=== PATIENT | female | born 2000 ===

== ENCOUNTER 2021-04-22 10:15 | Outpatient (RCR) | payer OTHER, SELFPAY ==
[2021-04-04 12:59] VITALS: BMI 19.5
--- NOTE | 2021-04-04 14:36 | PC.NURSE ---
Case opened in treatment team.
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
--- NOTE | 2021-04-08 15:00 | PC.NURSE ---
Pt emailed staff that she has a different phone number for us to reach her at: [phone]. I tried to call her at this number twice, and I did leave a message asking for a call back. I then called her old number (in chart) and it rang and rang for a long time with no answer.
--- NOTE | 2021-04-09 14:23 | PC.NURSE ---
After speaking with pt about aftercare options and getting her permission, I called and put in a referral for [facility] (for therapy and med management). I spoke to Kiya. She took information and said a triage nurse will call pt with an appointment for an intake. I gave them pt's new phone number ([phone]). I then called pt and let her know this, and asked to to be expecting this call.
--- NOTE | 2021-04-10 16:56 | P.PNPSP_ITS ---
Subjective Subjective Date of Service: 04/10/21 Reason For Visit: Adjustment Disorder Unspecified Guardianship: No Medical Problems Affecting Mental Status: No Interim History: Client reports that she is ?doing pretty good ?. Denies any thoughts of harm to self or others. Denies any alcohol use. Reports that she has been having cravings to drink at times. Also reports some mood instability, reports that she feels that she gets angry quickly, and continues having mood lability. Medication Compliance: Yes Side effects from medications: No Attending Groups: Yes Review of Systems Acute medical concerns: No Medical Review of Systems: unchanged Review of Systems Review of Systems Yes all other systems are reviewed and are negative Constitutional: Reports no additional constitutional complaints Mental Status Exam Mental Status Exam Narrative: Well-developed, well-nourished female, in NAD. Alert and oriented x4. No involuntary movements noted, motor activity calm. Patient Appearance: Well Grooomed and Appropriate Patient Orientation: Person, Place, Time and Situation Level of Consciousness: Awake, Appropriate and Alert Patient Behavior: Appropriate, Talkative, Cooperative and Good Eye Contact Mood Description: Appropriate, Anxious, Labile and Expansive Affect Description: Appropriate, Cheerful, Labile and Expansive Patient Cognition Impaired: No Ability to Follow Directions: Excellent Speech Pattern: Clear, Appropriate, Spontaneous Speech and Coherent Memory Description: Intact Hallucinations: None Delusions: Not Present Thought Process: Intact and Goal Oriented Thought Content: positive for Intact, positive for Racing and positive for Circumstantial Depressive Symptoms: Increased Anxiety, Difficulty Sleeping (reports varied sleep pattern, either too much or too little), Changes in Appetite, Crying Spells (endorses frequent mood lability. ), Loss of Int. in Activity, Feelings of Worthlessness, Hopelessness, Feelings of Guilt and Difficulty Concentrating Judgement: Fair Diagnostics Vital Signs (24Hr): BMI result Body Mass Index 19.5 Assessment & Plan Assessment & Plan (1) ERICKA (generalized anxiety disorder): Status: Acute Code(s): F41.1 - Generalized anxiety disorder Assessment and Plan: Client reports mood lability, increased anger and aggression at times. Requesting mood stabilizer. Discussed Lamictal as was presented last week. Client has still not obtained test. Lamictal was discussed regarding safety in , as well as risks and benefits. Client reports that she has appointment tomorrow with her primary care office and also to obtain a test. She states that she is willing to take Lamictal, but may wait until after results of her test tomorrow. (2) MDD (major depressive disorder): Status: Acute Code(s): F32.9 - Major depressive disorder, single episode, unspecified Assessment and Plan: Client denies any thought of harm to self or others, no safety concern at this time. Does report mood lability, requesting to have script for Lamictal sent so that she can begin it. (3) ETOH abuse: Status: Acute Code(s): F10.10 - Alcohol abuse, uncomplicated Assessment and Plan: Client reports ongoing abstinence regarding alcohol use. States that she has been having craving at times. Medications discussed such as a camper state and naltrexone, also in Vivitrol form. She is willing to trial oral naltrexone, with possibility of switching to Vivitrol if able to tolerate oral naltrexone 1st. Education provided including need for no use of narcotics within past week or future use while receiving this medication. She stated understanding, and was agreeable to this. She was also willing to accept referral to [facility]. Assessment and Plan: 1. Start Lamictal 25 mg daily times 14 days. Patient has been informed of risks and benefits, especially considering test scheduled for tomorrow. 2. Start naltrexone 50 mg po daily. 3. Follow-up as per protocol. Patient educated on: diagnosis, medication risk/benefits, substance abuse and therapeutic strategies Informed Consent: understands Reason for contiued partial hosp. stay Substantial Risk for: inability to function and med/psych decompensation Certification I certify that partial hospital treatment is medically necessary due to the symptoms and problems resulting from the patient's mental illness and the failure to treat the patient at the partial hospital level of care would likely result in the patient requiring inpatient psychiatric care which could not be prevented at a less intensive level of care. I spent minutes with the patient and/or on the patient floor today, greater than?50% of which was spent counseling/coordinating care. Discharge Plan Discharge Attending provider: Martin Rosales Medications: New lamotrigine 25 mg tablet 25 mg PO DAILY 14 Days Qty: 14 RF: 0 naltrexone 50 mg tablet 50 mg PO DAILY Qty: 7 RF: 0 No Action trazodone 50 mg Tablet 50 mg PO BEDTIME PRN (Reason: Insomnia) RF: 0 nicotine (polacrilex) 2 mg Gum 2 mg BUCCAL Q2H RF: 0 hydroxyzine pamoate 50 mg Capsule 50 mg PO BID PRN (Reason: Anxiety) RF: 0 nicotine 21 mg/24 hr Patch 24 Hour 1 patch TRANSDERMAL DAILY RF: 0 melatonin 10 mg Tablet, Sublingual 10 mg SUBLINGUAL BEDTIME PRN (Reason: Insomnia) RF: 0 Telehealth Telehealth Location of provider rendering services: practice address Location of patient: address on file Patient Identification confirmed using: Name, : Yes Telehealth method: video Patient verbally consented to treatment: Yes Patient verbally consented to billing insurance company: Yes Patient informed of any privacy concerns related to visit: Yes Time spent with patient (mins): 15
--- NOTE | 2021-04-12 13:07 | PC.NURSE ---
Called Rowan ware, awaiting a call back to talk about patient's interest in an appointment at the [facility] regarding Vivitrol.
--- NOTE | 2021-04-16 16:18 | HO.PHPPROGNO ---
Subjective Subjective Date of Service: 04/16/21 Reason For Visit: Adjustment Disorder Unspecified Interim History: Patient seen and discussed with team. Patient evaluated this morning and upon interview she reports If im being completely honest, she has not started taking lamictal or naltrexone. Says she continues to have cravings for alcohol, noticed this was worse over a period of 3 days last week, attributes this to the holidays but says since then she has felt fine. Says sleep is honestly pretty good, utilizes vistaril and melatonin before bed with good effect. Says her energy is a lot better but its hard to wake up in the morning. Denies mood or behavioral concerns, Lakisha been alright. Denies panic attacks. Utilizes supports. Appetite is decent. Says [facility] groups are great to be honest. Medication Compliance: Yes Side effects from medications: No Attending Groups: Yes Review of Systems Acute medical concerns: No Medical Review of Systems: unchanged Mental Status Exam Mental Status Exam Narrative: Well-developed, well-nourished female, in NAD.? Alert and oriented x4.? No involuntary movements noted, motor activity calm. Patient Appearance: Well Grooomed and Appropriate Patient Orientation: Person, Place, Time and Situation Level of Consciousness: Awake, Appropriate and Alert Patient Behavior: Appropriate, Talkative, Cooperative and Good Eye Contact Mood Description: Appropriate, Anxious, Labile and Expansive, alright Affect Description: Appropriate, Cheerful, Labile and Expansive Patient Cognition Impaired: No Ability to Follow Directions: Excellent Speech Pattern: Clear, Appropriate, Spontaneous Speech and Coherent Memory Description: Intact Hallucinations: None Delusions: Not Present Thought Process: Intact and Goal Oriented Thought Content: positive for Intact, positive for Racing and positive for Circumstantial Depressive Symptoms: Increased Anxiety, Difficulty Sleeping (reports varied sleep pattern, either too much or too little), Changes in Appetite, Crying Spells (endorses frequent mood lability. ), Loss of Int. in Activity, Feelings of Worthlessness, Hopelessness, Feelings of Guilt and Difficulty Concentrating Judgment: Fair Diagnostics Vital Signs (24Hr): BMI result Body Mass Index 19.5 Assessment & Plan Assessment & Plan (1) MDD (major depressive disorder): Status: Acute Code(s): F32.9 - Major depressive disorder, single episode, unspecified (2) ERICKA (generalized anxiety disorder): Status: Acute Code(s): F41.1 - Generalized anxiety disorder (3) ETOH abuse: Status: Acute Code(s): F10.10 - Alcohol abuse, uncomplicated Assessment and Plan: Pt completed test and states this was negative. She has not picked up lamictal or naltrexone as of yet but plans to start them tomorrow to target sx of mood instability, depression, and urges for drinking. Says she has been abstinent from alcohol but noticed worsening cravings for 3 days last week and also thoughts to drink after work, however says she utilizes social supports. Also of note, per prev progress note pt is also willing to accept referral to [facility]. 1. Start Lamictal 25 mg daily times 14 days.? Patient has been informed of risks and benefits, especially considering test scheduled for tomorrow. 2. Start naltrexone 50 mg po daily. 3. Follow-up as per protocol. Certification I certify that partial hospital treatment is medically necessary due to the symptoms and problems resulting from the patient's mental illness and the failure to treat the patient at the partial hospital level of care would likely result in the patient requiring inpatient psychiatric care which could not be prevented at a less intensive level of care. I spent minutes with the patient and/or on the patient floor today, greater than?50% of which was spent counseling/coordinating care. Discharge Plan Discharge Attending provider: Martin Rosales Additional Instructions: Intake appointment at [facility] location with INDRA Mejias. on 05/01/2020 at 2pm. PCP at [facility] has agreed to cover medication management per pt while waiting to get in with a med provider. Call program nurse, Amber Reeder RN, to discuss option for vivitrol as discussed. Medications: New lamotrigine 25 mg tablet 25 mg PO DAILY 14 Days Qty: 14 RF: 0 naltrexone 50 mg tablet 50 mg PO DAILY Qty: 7 RF: 0 lamotrigine 25 mg tablet 50 mg PO DAILY 14 Days Qty: 28 RF: 0 lamotrigine [Lamictal] 100 mg tablet 100 mg PO DAILY 30 Days Qty: 30 RF: 0 No Action trazodone 50 mg Tablet 50 mg PO BEDTIME PRN (Reason: Insomnia) RF: 0 nicotine (polacrilex) 2 mg Gum 2 mg BUCCAL Q2H RF: 0 hydroxyzine pamoate 50 mg Capsule 50 mg PO BID PRN (Reason: Anxiety) RF: 0 nicotine 21 mg/24 hr Patch 24 Hour 1 patch TRANSDERMAL DAILY RF: 0 melatonin 10 mg Tablet, Sublingual 10 mg SUBLINGUAL BEDTIME PRN (Reason: Insomnia) RF: 0 Stand Alone Forms: Patient Portal Discharge page
--- NOTE | 2021-04-18 13:52 | HO.PHPPROGNO ---
Subjective Subjective Date of Service: 04/18/21 Reason For Visit: Adjustment Disorder Unspecified Guardianship: No Medical Problems Affecting Mental Status: No Interim History: Rowan reports I'm doing alright, I feel pretty neutral right now . Reports that her mood is okay. States that she continues with some cravings for alcohol, but has been able to abstain. Utilizing 12 step meetings via zoom. Has only been taking Lamictal and naltrexone for past 2 days. Denies any type of side effects. No thoughts of harm to self or others, no safety concern. Medication Compliance: Intermittent Side effects from medications: No Attending Groups: Yes Review of Systems Acute medical concerns: No Medical Review of Systems: unchanged Review of Systems Review of Systems Yes all other systems are reviewed and are negative Constitutional: Reports no additional constitutional complaints Mental Status Exam Mental Status Exam Narrative: Well-developed, well-nourished female, in NAD. Alert and oriented x4. No involuntary movements noted, motor activity calm. Patient Appearance: Well Grooomed and Appropriate Patient Orientation: Person, Place, Time and Situation Level of Consciousness: Awake, Appropriate and Alert Patient Behavior: Appropriate, Talkative, Cooperative and Good Eye Contact Mood Description: Calm (describes mood as neutral .) and Appropriate Affect Description: Appropriate, Depressed and Anxious Patient Cognition Impaired: No Ability to Follow Directions: Excellent Speech Pattern: Clear, Appropriate, Spontaneous Speech and Coherent Memory Description: Intact Hallucinations: None Delusions: Not Present Thought Process: Intact, Goal Oriented and Linear Thought Content: positive for Intact, positive for Goal Oriented, positive for Linear and positive for Logical Depressive Symptoms: Increased Anxiety, Loss of Int. in Activity, Feelings of Worthlessness and Feelings of Guilt Judgement: Fair Diagnostics Vital Signs (24Hr): BMI result Body Mass Index 19.5 Assessment & Plan Assessment & Plan (1) MDD (major depressive disorder): Status: Acute Code(s): F32.9 - Major depressive disorder, single episode, unspecified Assessment and Plan: Rowan reports I'm doing alright, I feel pretty neutral right now . Reports that her mood is okay. States that she continues with some cravings for alcohol, but has been able to abstain. Utilizing 12 step meetings via zoom. Has only been taking Lamictal and naltrexone for past 2 days. Denies any type of side effects. client instructed to stop Lamictal if rash develops, and notify us. No thoughts of harm to self or others, no safety concerns at this time. (2) ERICKA (generalized anxiety disorder): Status: Acute Code(s): F41.1 - Generalized anxiety disorder (3) ETOH abuse: Status: Acute Code(s): F10.10 - Alcohol abuse, uncomplicated Assessment and Plan: 1. Continue with Lamictal 25 mg x 14 days, with plan to titrate up to 50mg X14 days, then 100mg thereafter. 2. Continue with naltrexone, other medications as prescribed. 3. Follow-up as per protocol. Patient educated on: diagnosis, medication risk/benefits, substance abuse and therapeutic strategies Informed Consent: understands Reason for contiued partial hosp. stay Substantial Risk for: inability to function and med/psych decompensation Certification I certify that partial hospital treatment is medically necessary due to the symptoms and problems resulting from the patient's mental illness and the failure to treat the patient at the partial hospital level of care would likely result in the patient requiring inpatient psychiatric care which could not be prevented at a less intensive level of care. I spent minutes with the patient and/or on the patient floor today, greater than?50% of which was spent counseling/coordinating care. Discharge Plan Discharge Attending provider: Martin Rosales Medications: New lamotrigine 25 mg tablet 25 mg PO DAILY 14 Days Qty: 14 RF: 0 naltrexone 50 mg tablet 50 mg PO DAILY Qty: 7 RF: 0 No Action trazodone 50 mg Tablet 50 mg PO BEDTIME PRN (Reason: Insomnia) RF: 0 nicotine (polacrilex) 2 mg Gum 2 mg BUCCAL Q2H RF: 0 hydroxyzine pamoate 50 mg Capsule 50 mg PO BID PRN (Reason: Anxiety) RF: 0 nicotine 21 mg/24 hr Patch 24 Hour 1 patch TRANSDERMAL DAILY RF: 0 melatonin 10 mg Tablet, Sublingual 10 mg SUBLINGUAL BEDTIME PRN (Reason: Insomnia) RF: 0 Telehealth Telehealth Location of provider rendering services: practice address Location of patient: address on file Patient Identification confirmed using: Name, : Yes Telehealth method: video Patient verbally consented to treatment: Yes Patient verbally consented to billing insurance company: Yes Patient informed of any privacy concerns related to visit: Yes Time spent with patient (mins): 15
--- NOTE | 2021-04-18 14:17 | HO.PHPPROGNO ---
Subjective Subjective Date of Service: 04/22/21 Reason For Visit: Adjustment Disorder Unspecified Guardianship: No Medical Problems Affecting Mental Status: No Interim History: Rowan reports I am doing alright . Describes mood as improved, with depressive and anxiety symptoms much more manageable at this time. Denies any type of thoughts of harm to self or others, no safety concern. Reports that she feels stable for discharge from [facility] today. Needs script for lamotrigine titration. Reports that her primary care office has offered to continue her psychiatric medications until she can meet with a psych provider going forward. Medication Compliance: Yes Side effects from medications: No Attending Groups: Yes Review of Systems Acute medical concerns: No Medical Review of Systems: unchanged Review of Systems Review of Systems Yes all other systems are reviewed and are negative Constitutional: Reports no additional constitutional complaints Mental Status Exam Mental Status Exam Narrative: Well-developed, well-nourished female, in NAD. Alert and oriented x4. No involuntary movements noted, motor activity calm. Patient Appearance: Well Grooomed and Appropriate Patient Orientation: Person, Place, Time and Situation Level of Consciousness: Awake, Appropriate and Alert Patient Behavior: Appropriate, Cooperative and Good Eye Contact Mood Description: Calm, Appropriate and Cheerful Affect Description: Calm, Appropriate and Cheerful Patient Cognition Impaired: No Ability to Follow Directions: Excellent Speech Pattern: Clear, Appropriate, Spontaneous Speech and Coherent Memory Description: Intact Hallucinations: None Delusions: Not Present Thought Process: Intact, Goal Oriented and Linear Thought Content: positive for Intact, positive for Goal Oriented, positive for Linear and positive for Logical Judgement: Good Diagnostics Vital Signs (24Hr): BMI result Body Mass Index 19.5 Assessment & Plan Assessment & Plan (1) MDD (major depressive disorder): Status: Acute Code(s): F32.9 - Major depressive disorder, single episode, unspecified Assessment and Plan: Rowan reports I am doing alright . Describes mood as improved, with depressive and anxiety symptoms much more manageable at this time. Denies any type of thoughts of harm to self or others, no safety concern. Reports that she feels stable for discharge from [facility] today. Needs script for lamotrigine titration. Reports that her primary care office has offered to continue her psychiatric medications until she can meet with a psych provider going forward. (2) ERICKA (generalized anxiety disorder): Status: Acute Code(s): F41.1 - Generalized anxiety disorder (3) ETOH abuse: Status: Acute Code(s): F10.10 - Alcohol abuse, uncomplicated Assessment and Plan: Reports doing well with oral naltrexone to manage cravings. Assessment and Plan: 1. After 14 days of lamotrigine 25 mg daily completed, titrate up to 50 mg daily times 14 days. 2. After 14 days of lamotrigine 50 mg daily completed, titrate up to 100 mg daily going forward. 3. Patient appears stable for discharge from [facility]. Will follow up with outpatient providers going forward. Patient educated on: diagnosis, medication risk/benefits, substance abuse and therapeutic strategies Informed Consent: understands Reason for contiued partial hosp. stay Substantial Risk for: stable for discharge Certification I certify that partial hospital treatment is medically necessary due to the symptoms and problems resulting from the patient's mental illness and the failure to treat the patient at the partial hospital level of care would likely result in the patient requiring inpatient psychiatric care which could not be prevented at a less intensive level of care. I spent minutes with the patient and/or on the patient floor today, greater than?50% of which was spent counseling/coordinating care. Discharge Plan Discharge Attending provider: Martin Rosales Medications: New lamotrigine 25 mg tablet 25 mg PO DAILY 14 Days Qty: 14 RF: 0 naltrexone 50 mg tablet 50 mg PO DAILY Qty: 7 RF: 0 lamotrigine 25 mg tablet 50 mg PO DAILY 14 Days Qty: 28 RF: 0 lamotrigine [Lamictal] 100 mg tablet 100 mg PO DAILY 30 Days Qty: 30 RF: 0 No Action trazodone 50 mg Tablet 50 mg PO BEDTIME PRN (Reason: Insomnia) RF: 0 nicotine (polacrilex) 2 mg Gum 2 mg BUCCAL Q2H RF: 0 hydroxyzine pamoate 50 mg Capsule 50 mg PO BID PRN (Reason: Anxiety) RF: 0 nicotine 21 mg/24 hr Patch 24 Hour 1 patch TRANSDERMAL DAILY RF: 0 melatonin 10 mg Tablet, Sublingual 10 mg SUBLINGUAL BEDTIME PRN (Reason: Insomnia) RF: 0 Stand Alone Forms: Patient Portal Discharge page Telehealth Telehealth Location of provider rendering services: practice address Location of patient: address on file Patient Identification confirmed using: Name, : Yes Telehealth method: video Patient verbally consented to treatment: Yes Patient verbally consented to billing insurance company: Yes Patient informed of any privacy concerns related to visit: Yes Time spent with patient (mins): 15
--- NOTE | 2021-04-22 13:57 | PC.NURSE ---
Rowan scheduled to discharge from [facility] today. Reviewed patient medications with patient. Reports taking medications as prescribed. Patient reports she feels good about discharge. No Si. Left message on patient'answering machine x2 to call me back to talk about medication assisted treatment for ETOH use and interest in Vivitrol. Asked patient if she was still interested and she stated she was. i told her I would call them and have them call her for an appointment. Spoke to Em from [facility] and gave her patient's phone number to call and f/u with an appointment.
== END 2021-04-23 07:47 | disposition home or self-care (01) ==
LOC: HO.PHPA 10:15
PROVIDERS: Visit Provider Psychiatry & Neurology Psychiatry
DX: F32.9 Major depressive disorder, single episode, unspecified (principal); F41.1 Generalized anxiety disorder; F10.10 Alcohol abuse, uncomplicated
CPT/HCPCS: 90791; 90853